=== PATIENT | male | born 1965 | race Caucasian/White ===

== ENCOUNTER → 2017-10-30 07:54 | Outpatient (REF) | payer BC, SELFPAY ==
[2017-10-30 12:57] LABS: BUN 19 mg/dL (7-18); Calcium 9.2 mg/dL (8.5-10.1); Chloride 101 mmol/L (98-107); Glucose 122 mg/dL (70-100); Potassium 4.3 mmol/L (3.5-5.1); Sodium 139 mmol/L (136-145)
[2017-10-30 13:02] LABS: Hemoglobin A1C 6.1 % (4.5-6.2)
== END ==
LOC: NCHCN 07:54
PROVIDERS: PCP Internal Medicine; Visit Provider Family Medicine
DX: E11.9 Type 2 diabetes mellitus without complications (principal); I10 Essential (primary) hypertension
CPT/HCPCS: 80048; 83036

== ENCOUNTER 2017-11-10 08:56 | Outpatient (REF) | payer BC, SELFPAY ==
[2017-11-10 13:32] LABS: COMMENT (LAB VIEW ONLY) 214.83 mg/dL; Microalb ug/mg Crea 4.9 ug/mg Cr
== END 2017-11-10 09:16 ==
LOC: NCHCN 08:56
PROVIDERS: PCP Internal Medicine; Visit Provider Family Medicine
DX: E11.9 Type 2 diabetes mellitus without complications (principal)
CPT/HCPCS: 82043; 82570

== ENCOUNTER 2018-11-23 10:29 | Outpatient (REF) | payer BC, SELFPAY ==
[2018-11-23 11:50] LABS: BUN 24 mg/dL (7-18); CREATININE 1.49 mg/dL (0.70-1.30); Calcium 9.3 mg/dL (8.5-10.1); Chloride 100 mmol/L (98-107); Estimated GFR 48.97 (mL/min/1.73m2); Glucose 143 mg/dL (70-100); Sodium 138 mmol/L (136-145)
== END 2018-11-23 10:49 ==
LOC: NCHCN 10:29
PROVIDERS: PCP Internal Medicine; Visit Provider Family Medicine
DX: I10 Essential (primary) hypertension (principal)
CPT/HCPCS: 80048

== ENCOUNTER 2019-05-25 10:43 | Outpatient (REF) | payer BC, SELFPAY ==
[2019-05-25 13:45] LABS: Magnesium 1.5 mg/dL (1.8-2.4); TSH (W/Ref FT4) 2.43 uIU/mL (0.36-3.74)
== END 2019-05-25 11:03 ==
LOC: NCHCN 10:43
PROVIDERS: PCP Internal Medicine; Visit Provider Family Medicine
DX: I48.91 Unspecified atrial fibrillation (principal)
CPT/HCPCS: 83735; 84443

== ENCOUNTER 2019-11-28 11:10 | Outpatient (REF) | payer BC, SELFPAY ==
[2019-11-28 19:41] LABS: Anion Gap 10.3 mmol/L (3-11); BUN 22 mg/dL (7-18); CO2 26.7 mmol/L (21.0-32.0); Calcium 9.4 mg/dL (8.5-10.1); Chloride 99 mmol/L (98-107); Estimated GFR 52.42 (mL/min/1.73m2); Glucose 135 mg/dL (74-106); Magnesium 1.8 mg/dL (1.8-2.4); Potassium 4.7 mmol/L (3.5-5.1); Sodium 136 mmol/L (136-145); Vitamin B12 271 pg/mL (193-986)
== END 2019-11-28 11:30 ==
LOC: NCHCN 11:10
PROVIDERS: PCP Internal Medicine; Visit Provider Family Medicine
DX: E83.42 Hypomagnesemia (principal); E11.9 Type 2 diabetes mellitus without complications; K21.9 Gastro-esophageal reflux disease without esophagitis; N28.9 Disorder of kidney and ureter, unspecified
CPT/HCPCS: 80048; 82607; 83735

== ENCOUNTER 2019-12-28 09:01 | Day surgery (SDC) | payer BC, SELFPAY ==
--- NOTE | 2019-12-28 06:49 | W.COLOREPORT ---
Date of service: 12/28/19 Time of Service: 12:49 Colonoscopy Report Date of procedure: 12/28/19 Pre-op diagnosis general: screening, hx of polyps Post-op diagnosis procedure note: other (polyps and external hemorrhoid) Procedure: colonoscopy with polypectomy Surgeon: Adeline Lal Anesthesia proc note operative: other (General/ ASA 2/Ishmael Scales, SELAM) Estimated blood loss (mL): 3 Pathology: other (ascending, descending sigmoid and rectal polyps) Complications: None Disposition: same day Indications: Mr. Paulson is a pleasant 54-year-old gentleman who is due for colonoscopy. His last colonoscopy was in 2014 and at that time he was noted to have a tubular adenoma. He has had no changes in his bowel habits. He does have some occasional rectal bleeding. He recently had a physical exam and his primary care physician noted an external skin tag versus wart versus neoplasm and wanted the patient examined. Because he is due for colonoscopy I will do the examination at the time of the colonoscopy and do biopsies as needed at that time. The patient has a past medical history of a murmur and A. fib. His last echo was 2014. Patient is asymptomatic. He has no chest pain and is able to climb stairs without shortness of breath. Colonoscopy explained to the patient as well as its complications. Prep: Miralax/Dulcolax Procedure Start Time: 12:49 Procedure End Time: 13:19 Retraction Time: >6 minutes Findings: multiple small sessile polyps External hemorrhoid Procedure Description: After informed consent was obtained the patient was taken to the procedure room and placed in a left decubitous position. Monitors were applied and a time out was done. The patients name, date of , procedure, allergies to medications and metal in their body was reviewed. The patient was then sedated. Once sedated and comfortable a rectal exam was done. External exam revealed one external hemorrhoid. Internal exam revealed a normal sphincter tone and no palpable masses. The prostate felt smooth and not enlarged. The scope was then introduced and retro-flexed. No internal hemorrhoids were identified. The scope was then advanced to the cecum without difficulty. The ileocecal valve and appendiceal orifice were identified. The prep was good. The scope was then slowly retracted over more then 6 minutes back into the rectum. Polyps were removed with cold forceps in the ascending colon x1, descending colon x1, sigmoid colon x8 and rectum x2. There were no diverticula. The scope was removed and the patient was woken up and taken back to Same day surgery in stable condition. The patient tolerated the procedure well and there were no immediate complications. Follow up: The patient should follow up in 5 years unless they develop changes in bowel habits or other new gastrointestinal complaints.
--- NOTE | 2019-12-28 06:50 | W.PM.DSUDISC ---
Discharge Plan Disposition Patient Disposition: HOME Condition: Good Discharge Details Reason For Visit: Colonoscopy Attending Provider: Adeline Lal Primary Care Provider: Cody Frederick [place] Meds and New Rx's Prescriptions: Continued magnesium oxide 400 mg magnesium capsule 400 mg PO BID RF: 0 Eliquis 5 mg tablet 5 mg PO BID RF: 0 omeprazole 20 mg capsule,delayed release(DR/EC) 20 mg PO DAILY RF: 0 chlorthalidone 25 mg tablet 25 mg PO DAILY RF: 0 spironolactone 25 mg tablet 25 mg PO DAILY RF: 0 metformin 1,000 mg tablet 1,000 mg PO BID RF: 0 atorvastatin 40 mg tablet 40 mg PO DAILY RF: 0 diltiazem HCl 180 MG capsule,extended release 24hr 180 mg PO DAILY RF: 0 doxazosin 1 mg tablet 1 mg PO HS RF: 0 Discontinued bisacodyl [Dulcolax (bisacodyl)] 5 mg tablet,delayed release (DR/EC) 5 mg PO ONCE Qty: 4 RF: 0 polyethylene glycol 3350 17 gram powder in packet 255 g PO DAILY Qty: 15 RF: 0 Discharge Instructions Additional Instructions: Findings: 12 polyps removed external hemorrhoid Follow up: depends on pathology results Please call if you develop: fevers >101.5 Nausea or Vomiting Abdominal pain that is not transient DAY SURGERY UNIT POST ENDOSCOPY INSTRUCTIONS 1. Because there will be medication in your system for the next 24 hours, you may feel a little sleepy. Your coordination will be affected. Therefore: a. Do not drive or operate dangerous equipment for 24 hours. b. Do not drink alcohol beverages for 24 hours (not even beer). c. Plan to go home and rest for the day. 2. Generally there are no restrictions on your activity after a day or so has gone by, but you may feel a bit fatigued for a few days. 3 After you arrive home you may have a light meal and return to a normal diet as you can tolerate it without feeling sick to your stomach. 4. After surgery, you may feel pain or discomfort. This should be only transient, but if it persists please contact your doctor. 5. If there are any questions regarding the findings of your procedure, please feel free to contact your doctor. 6. If you are unable to contact your doctor with a problem, contact the hospital at [phone]. 7. Continue all your regular medications unless directed otherwise. I understand the above instructions and have no questions. Signature of Patient or Responsible Adult Escort Date/Time Name of Responsible Adult Escort Signature of Nurse Date/Time Activity:: Activity as Tolerated Diet:: As Tolerated Discharge Orders Discharge Orders: Discharge Order (Routine); Ordered 12/28/19 Ordered By: Adeline Lal
[2019-12-28 09:14] VITALS: BP 139/79; PULSE 80; RESP 18; TEMP 36.6; O2SAT 95
[2019-12-28] MEDS: Lactated Ringers 1,000 ML 80 ML IV (09:39)
--- NOTE | 2019-12-28 13:00 | BOWEL_PTH ---
PATIENT: Jay Paulson LOC: [facility] U#:[id number] AGE/SX: 54/M ROOM: RE12/28/[address]: Adeline Lal MD : [id number] BED: DIS: 12/28/2019 SPEC #: [id number] RECD: 12/28/19 16:20 STATUS: ANT REQ #: [id number] NIRALI: 12/28/19 13:[address]: Adeline Lal DEPT: Surgical Specimen RECD BY: Karen Rausch ENTERED: 12/28/19 16:22 SP TYPE: Bowel OTHR DR: Cody Frederick Tissues: 1 - BIOPSY BOWEL 2 - BIOPSY BOWEL 3 - BIOPSY BOWEL 4 - BIOPSY BOWEL Procedures: GROSS AND MICRO LEVEL 4 Comments: [id number]
[2019-12-28 13:52] VITALS: BP 138/82; PULSE 67; RESP 18; TEMP 36.4; O2SAT 96
== END 2019-12-28 14:23 | disposition home or self-care (01) ==
PROVIDERS: PCP Family Medicine; Visit Provider Surgery
PROC: 0DJD8ZZ Inspection of Lower Intestinal Tract, Via Natural or Artificial Opening Endoscopic (ICD-10-PCS; CPT 45378; principal; 2019-12-28 09:30)
DX: Z12.11 Encounter for screening for malignant neoplasm of colon (principal); D12.4 Benign neoplasm of descending colon; K62.1 Rectal polyp; K63.5 Polyp of colon
CPT/HCPCS: 45380; 88305; J2001

== ENCOUNTER 2020-02-08 21:58 | Outpatient (REF) | payer BC, SELFPAY ==
[2020-02-08 20:52] LABS: Anion Gap 10.4 mmol/L (3-11); BUN 20 mg/dL (7-18); CO2 25.6 mmol/L (21.0-32.0); CREATININE 1.34 mg/dL (0.70-1.30); Chloride 101 mmol/L (98-107); Estimated GFR 55.14 (mL/min/1.73m2); Glucose 116 mg/dL (74-106); Potassium 4.3 mmol/L (3.5-5.1); Sodium 137 mmol/L (136-145)
== END 2020-02-08 22:18 ==
LOC: NCHCN 21:58
PROVIDERS: PCP Family Medicine; Visit Provider Family Medicine
DX: I10 Essential (primary) hypertension (principal)
CPT/HCPCS: 80048

== ENCOUNTER 2020-02-21 15:58 | Outpatient (REF) | payer BC, SELFPAY ==
[2020-02-21 16:33] LABS: Anion Gap 13.5 mmol/L (3-11); BUN 22 mg/dL (7-18); CO2 21.5 mmol/L (21.0-32.0); CREATININE 1.54 mg/dL (0.70-1.30); Calcium 9.3 mg/dL (8.5-10.1); Chloride 100 mmol/L (98-107); Estimated GFR 46.96 (mL/min/1.73m2); Glucose 187 mg/dL (74-106); Potassium 4.3 mmol/L (3.5-5.1); Sodium 135 mmol/L (136-145)
== END 2020-02-21 16:18 ==
LOC: NCHCN 15:58
PROVIDERS: PCP Family Medicine; Visit Provider Family Medicine
DX: I10 Essential (primary) hypertension (principal)
CPT/HCPCS: 80048

== ENCOUNTER 2021-02-06 20:54 | Outpatient (REF) | payer BC, SELFPAY ==
[2021-02-06 20:52] LABS: Anion Gap 12.7 mmol/L (3-11); BUN 29 mg/dL (7-18); CO2 24.3 mmol/L (21.0-32.0); CREATININE 1.6 mg/dL (0.70-1.30); Calcium 9.2 mg/dL (8.5-10.1); Chloride 101 mmol/L (98-107); Estimated GFR 44.78 (mL/min/1.73m2); Glucose 119 mg/dL (74-106); Potassium 4.7 mmol/L (3.5-5.1); Sodium 138 mmol/L (136-145)
== END 2021-02-06 20:55 | disposition home or self-care (01) ==
LOC: NCHCN 20:54
PROVIDERS: PCP Family Medicine; Visit Provider Family Medicine
DX: N18.31 Chronic kidney disease, stage 3a (principal)
CPT/HCPCS: 80048

== ENCOUNTER 2021-03-20 01:21 | Outpatient (CLI) | payer BC, SELFPAY ==
--- NOTE | 2021-03-20 14:00 | DI.US_ITS ---
APPROVED REPORT EXAM: Comprehensive 2D, Doppler, and color-flow Echocardiogram Patient Location: Out-Patient Medical Office Technician: Ryann Joyner RDCS (AE) Indications: Aortic stenosis, HTN, A Fib, Murmur Other Information Study Quality: Good Conclusion Left Ventricle : The left ventricle is normal size. The left ventricular systolic function is normal. The left ventricular ejection fraction is within the normal range. There is normal left ventricular wall thickness. There is normal LV segmental wall motion. The diastolic function is abnormal. LVEF is 60-65%. Right Ventricle : The right ventricle is normal size. The right ventricular systolic function is norm al. The RVSP is 28.5mmHg. Atria : The left atrium size is normal. The right atrium size is normal. Aortic Valve : Aortic valve is calcified. No aortic regurgitation is present. Moderate aortic stenosi s. Peak aortic valve gradient is 60.3mmHg. Highest mean aortic valve gradient is 34.3mmHg. Calculate d JOHNNA by the continuity equation is 1.15cm2. Great Vessels : The aortic root is normal in size. The ascending aorta is moderately dilated. IVC is normal in size and collapses >50% with inspiration. Wall motion Left Ventricle The left ventricle is normal size. The left ventricular systolic function is normal. The left ventric ular ejection fraction is within the normal range. There is normal left ventricular wall thickness. T here is normal LV segmental wall motion. The diastolic function is abnormal. There is no ventricular septal defect visualized. LVEF is 60-65%. Right Ventricle The right ventricle is normal size. The right ventricular systolic function is normal. The RVSP is 28 .5mmHg. Atria The left atrium size is normal. The right atrium size is normal. The interatrial septum is intact wit h no evidence for an atrial septal defect. Aortic Valve Aortic valve is calcified. Moderate aortic stenosis. Peak aortic valve gradient is 60.3mmHg. Highest mean aortic valve gradient is 34.3mmHg. Calculated JOHNNA by the continuity equation is 1.15cm2. No aort ic regurgitation is present. Mitral Valve Moderate mitral annular calcification. No evidence of mitral valve stenosis. Trace to mild mitral reg urgitation. Tricuspid Valve The tricuspid valve is normal in structure. There is no tricuspid valve stenosis. Trace to mild tricu spid regurgitation. Pulmonic Valve The pulmonary valve is normal in structure. There is no pulmonic valvular stenosis. Mild pulmonic reg urgitation. Great Vessels The aortic root is normal in size. The ascending aorta is moderately dilated. IVC is normal in size a nd collapses >50% with inspiration. Pericardium There is no pericardial effusion. 2D Dimensions IVSD d PLAX 1.14 cm M: 0.6-1.2 LV Vol A2C d MOD 102.1 mL LVPW d PLAX 1.16 cm M: 0.6 - 1.2 LV Vol A4C d MOD 99.9 mL LVID d PLAX 5.04 cm M: 4.2 - 5.8 LA vol/ BSA A2C s A-L 24.6 mL/m2 LVDs 3.20 cm M: 2.5 - 4.0 LA vol/ BSA A4C s A-L 27.4 mL/m2 Ao Root d 3.49 cm M: 3.1 - 3.7 LA Vol/ BSA Biplane s A-L 26.8 mL/m2 RA Area A4C 12.92 cm2 LA Area A4C s MOD 20.77 cm2 RA Vol/ BSA A4C s A-L 12.3 mL/m2 LA Area A2C s MOD 19.06 cm2 Ao Asc Diam d 4.11 cm M: 2.6 - 3.4 LV EF A4C MOD 61.7 % LV EF Teichholz 65.4 % LV EF A2C MOD 66.2 % LVEF (Willams's) 62.54 % M: 52 - 72 LV EF Biplane MOD 62.5 % LV Volume 74.30 mL M: 62 - 150 SV 63.68 mL LV Volume Index 34.23 mL/m2 M: 34 - 74 SV Index 29.27 mL/m2 LV Vol Biplane MOD 101.8 mL FS 36.00 % M-Mode TAPSE 1.78 cm (M/F) >1.7 LV Diastology MV E' medial 0.059 (>0.07 m/s) E/A Ratio 0.8 LV E/e MED 16.95 (<14) MV E Vmax 1.00 (0.4-1.3 m/s) MV E' lateral 0.071 (>0.1 m/s) MV A Vmax 1.30 (0.4-1.3 m/s) LV E/e LAT 14.05 (<14) MV E/A Ratio 0.74 MV E/E' medial 16.98 MV E/E' lateral 14.05 Aortic Valve LVOT Area 3.06 cm2 AoV Area Vmax 1.15 cm2 LVOT Vmax 1.46 m/s AoV Area/ BSA (Vmax) 0.53 cm2/m2 LVOT Mean Juan M. 1.28 m/s JOHNNA Mean Juan M. 1.42 cm2 LVOT Peak Grad 8.5 mmHg JOHNNA Mean Juan M. Index 0.65 cm2/m2 LVOT Mean Grad 6.6 mmHg LVOT VTI 0.344 m LVOT Diam s 1.95 cm AoV Vmax 3.88 m/s Velocity Ratio 0.37 AoV Mean Juan M. 2.77 m/s AoV Peak Grad 60.3 mmHg LVOT SV 105.44 mL AoV Mean Grad 34.3 mmHg AoV VTI 0.745 m AoV Area VTI 1.42 cm2 AoV Area/ BSA (VTI) 0.65 cm/m2 Mitral Valve MV DT 282 (160-240 msec) MV PHT 82 msec MV Area PHT 2.69 cm2 MV VTI 0.391 m MV Area VTI 2.70 (4.0-6.0 cm2) Pulmonary Valve PV Vmax 1.27 (0.5-1.5 m/s) RVOT Peak Gr. 4.45 mmHg PV Peak Grad 6.4 mmHg RVOT Mean Gr. 2.20 mmHg PV Mean Grad 3.7 mmHg RVOT VTI 0.197 m PV VTI 0.257 m RVOT Vmax 1.05 m/s Tricuspid Valve TR Peak Grad 25.4 mmHg TR Vmax 2.52 m/s RA Pressure 3.00 mmHg RVSP (TR) 28.5 mmHg
== END 2021-03-20 01:41 ==
PROVIDERS: PCP Family Medicine; Visit Provider Family Medicine
DX: I35.0 Nonrheumatic aortic (valve) stenosis (principal); I10 Essential (primary) hypertension; I48.91 Unspecified atrial fibrillation; R01.1 Cardiac murmur, unspecified; I77.810 Thoracic aortic ectasia
CPT/HCPCS: 93306

== ENCOUNTER 2021-04-03 15:05 | Outpatient (REF) | payer BC, SELFPAY ==
[2021-04-03 15:19] LABS: BUN 24 mg/dL (7-18); CREATININE 1.4 mg/dL (0.70-1.30); Calcium 9.3 mg/dL (8.5-10.1); Chloride 101 mmol/L (98-107); Estimated GFR 52.05 (mL/min/1.73m2); Glucose 105 mg/dL (74-106); Potassium 4.5 mmol/L (3.5-5.1); Sodium 137 mmol/L (136-145)
== END 2021-04-03 15:06 | disposition home or self-care (01) ==
LOC: NCHCN 15:05
PROVIDERS: PCP Family Medicine; Visit Provider Family Medicine
DX: I10 Essential (primary) hypertension (principal)
CPT/HCPCS: 80048

== ENCOUNTER 2021-07-16 17:38 | Outpatient (REF) | payer BC, SELFPAY ==
[2021-07-16 19:48] LABS: HCT 28.1 % (40.0-50.0); MCH 19.3 pg (27.0-33.0); MCHC 28.5 % (32.0-36.0); MCV 68 fL (80-95); MPV 9.9 fL (8.0-11.0); Platelet Count 418 10^3/uL (130-400); RBC 4.15 10^6/uL (4.36-5.78); RDW 17.1 % (11.8-14.1); RDW-SD 40.9 fL; WBC 8.13 10^3/uL (4.4-10.8)
[2021-07-16 20:08] LABS: Anion Gap 11.9 mmol/L (3-11); BUN 30 mg/dL (7-18); CO2 25.1 mmol/L (21.0-32.0); CREATININE 1.5 mg/dL (0.70-1.30); Calcium 8.5 mg/dL (8.5-10.1); Chloride 99 mmol/L (98-107); Estimated GFR 48.07 (mL/min/1.73m2); Glucose 122 mg/dL (74-106); Potassium 4.1 mmol/L (3.5-5.1); Sodium 136 mmol/L (136-145)
== END 2021-07-16 17:39 | disposition home or self-care (01) ==
LOC: NCHCN 17:38
PROVIDERS: PCP Family Medicine; Visit Provider Family Medicine
DX: I10 Essential (primary) hypertension (principal); R42 Dizziness and giddiness
CPT/HCPCS: 80048; 85027

== ENCOUNTER 2021-08-12 07:28 | Day surgery (SDC) | payer BC, SELFPAY ==
--- NOTE | 2021-08-12 06:18 | W.ANESPRE ---
General Info Date of Service Date Performed: 08/12/21 Height: 5 ft 9 in Weight: 108.862 kg Body Mass Index (BMI): 35.4 Surgical Procedure: Operation Date: 08/12/21 09:05 Proposed Procedure Side Surgeon p Colonoscopy w/Hemorrhoid Banding Adeline Lal MD Meds Allergies and Home Medications Allergies Allergy/AdvReac Type Severity Reaction Status Date / Time No Known Drug Allergies Allergy Unverified 08/12/21 07:59 Home Medication Medication Instructions Recorded apixaban 5 mg tablet (Eliquis) 5 mg PO BID 12/06/19 atorvastatin 40 mg tablet 40 mg PO DAILY 12/06/19 chlorthalidone 25 mg tablet 25 mg PO DAILY 12/06/19 magnesium oxide 400 mg PO BID 12/06/19 metformin 1,000 mg tablet 1,000 mg PO BID 12/06/19 omeprazole 20 mg capsule,delayed 20 mg PO DAILY 12/06/19 release spironolactone 25 mg tablet 25 mg PO DAILY 12/06/19 doxazosin 1 mg tablet 1 mg PO HS 12/26/19 dapagliflozin 5 mg tablet (Farxiga) 5 mg PO DAILY 07/23/21 diltiazem HCl 180 mg 300 mg PO DAILY 07/23/21 capsule,extended release 24 hr ferrous sulfate 325 mg (65 mg 325 mg PO DAILY 07/23/21 iron) tablet losartan 25 mg tablet 25 mg PO DAILY 07/23/21 bisacodyl 5 mg tablet,delayed 5 mg PO ONCE #4 tabs 07/26/21 release (Dulcolax (bisacodyl)) polyethylene glycol 3350 17 17 g PO ONCE #238 grams 07/26/21 gram/dose oral powder Current Visit Medications: Current Medications Generic Name Dose Route Start Last Admin Trade Name Freq PRN Reason Stop Dose Admin Ringer's Solution 1,000 mls @ 80 mls/hr 08/12/21 06:00 IV 09/05/21 23:59 INFUSION ANA ROSA IV Miscellaneous Supplies 1 each 08/12/21 06:00 Iv Access IV 09/05/21 23:59 DIRECTED ANA ROSA Sodium Chloride 0 ml 08/12/21 06:00 Normal Saline Flush 10 Ml Syr IV 09/05/21 23:59 PRN PRN Sodium Chloride 0 ml 08/12/21 06:00 Normal Saline 10 Ml Vial IJ 09/05/21 23:59 DIRECTED PRN Sterile Water 0 ml 08/12/21 06:00 Water,Injection,Sterile 10 Ml Vial IJ 09/05/21 23:59 DIRECTED PRN PFSH Active Problems Active Problems: Problem Status Onset Code Macrocytic anemia D53.9 Inflammatory polyps GERD (gastroesophageal reflux disease) K21.9 Diabetes type 2, controlled E11.9 Aortic stenosis I35.0 Hypomagnesemia E83.42 Disease of anus K62.9 Medical History Medical History A-fib F/U Dr. Frederick PCP Blurred vision BMI 34.0-34.9,adult Hx of pilonidal cyst Hyperlipidemia Renal insufficiency Pt. denies this Resistant hypertension Tubular adenoma of colon Surgical History Surgical History S/P colonoscopy 2014- Tubular adenoma Tobacco Smoking/Tobacco Use Status: Former Tobacco Use Alcohol Alcohol Intake: former Substance Use Substance use: Never Substance use type: does not use Vital Signs and Lab Results Vital Signs Most Recent Vital Signs in EMR: Temp Pulse Resp BP Pulse Ox 36.5 C 71 16 124/67 99 08/12/21 08:09 08/12/21 08:09 08/12/21 08:09 08/12/21 08:09 08/12/21 08:09 Lab Results Blood Type / Crossmatch: No Data to Display Complete Blood Count: White Blood Count 8.13 10^3/uL (4.4-10.8) 07/16/21 14:45 Red Blood Count 4.15 10^6/uL (4.36-5.78) L 07/16/21 14:45 Hemoglobin 8.0 g/dL (13.5-17.5) L 07/16/21 14:45 Hematocrit 28.1 % (40.0-50.0) L 07/16/21 14:45 Platelet Count 418 10^3/uL (130-400) H 07/16/21 14:45 Complete Metabolic Panel: Sodium Level 136 mmol/L (136-145) 07/16/21 14:45 Potassium Level 4.1 mmol/L (3.5-5.1) 07/16/21 14:45 Chloride Level 99 mmol/L (98-107) 07/16/21 14:45 Carbon Dioxide Level 25.1 mmol/L (21.0-32.0) 07/16/21 14:45 Blood Urea Nitrogen 30 mg/dL (7-18) H 07/16/21 14:45 Creatinine 1.5 mg/dL (0.70-1.30) H 07/16/21 14:45 Estimated GFR/1.73 m2 48.07 (mL/min/1.73m2) 07/16/21 14:45 Calcium Level 8.5 mg/dL (8.5-10.1) 07/16/21 14:45 Glucose Level 122 mg/dL (74-106) H 07/16/21 14:45 Liver Function Panel: No Data to Display Coagulation Panel: No Data to Display Cardiac Panel: No Data to Display Arterial Blood Gas: No Data to Display Venous Blood Gas: No Data to Display Pancreas Panel: No Data to Display Thyroid Panel: No Data to Display Infectious Disease: No Data to Display Blood Cultures: No Data to Display Toxicology Panel: No Data to Display Imaging and Studies Imaging and Studies Study information below may be from another EMR and interpreted by another provider. Please see original notes in EMR for more complete details. Echocardiogram Summary: 03/20/21: LVEF 60-65%, RV fxn wnl. moderate , peak gradient 60 mmhg, mean 34.4 mmhg, JOHNNA 1.15 cm2. Anesthesia Assessment and Plan Anesthesia History Personal History: No History of Anesthesia Complications Family History: No Family History of Anesthesia Complications Exercise Tolerance Exercise Tolerance: Metabolic Equivalents>4 Cardiac & Pulmonary Exam Cardiac Exam: Normal S1/S2 Heart Sounds Pulmonary Exam: Clear Bilateral Breath Sounds Implantable Cardiac Device Does patient have a Pacemaker or an ICD?: No Airway Exam Known Difficult Airway: No Mallampati Class: 2 Mouth Opening: Normal (> 3cm) Thyromental Distance: Greater than 3 cm Neck Range of Motion: Full ROM Neck Circumference: Thick Teeth Condition: Normal Dentition ASA Classification ASA Score: ASA 3 Emergency Case?: No NPO Status NPO Status: NPO Clears >2 hours, Solids >8 hours Anesthesia Plan Resuscitation Status: Full Code Anesthesia Technique: General Anesthesia Airway Planned: Natural Airway Monitors Used: Standard Monitors Preoperative Comments:: 56 yo male with anemia, history of polyps, blood in stool here for a colonoscopy. Sig PMHx: moderate , CKD, anemia, DM2, GERD, afib, former smoker, former EtOH.. Previous Anes: colo with propofol - no issues.
--- NOTE | 2021-08-12 07:00 | COLE_ITS ---
Colonoscopy Report Date of procedure: 08/12/21 Pre-op diagnosis general: anemia Post-op diagnosis procedure note: other (internal hemorrhoids and polyps) Procedure: Colonoscopy with polypectomy Surgeon: Adeline Lal Anesthesia Type: General:No Airway Estimated blood loss (mL): 3 Pathology: other (cecal polyps, rectal polyps) Complications: None Disposition: same day Indications: Mr. Paulson is a pleasant 56-year-old gentleman who was noted to be anemic by his primary care physician.? He has had some blood in the stool and in the water.? The blood is bright red.? He has had lack of energy but no shortness of breath or chest pain.? He has a known murmur and had an echo in March of this year.? He does have moderate aortic stenosis.? Again he does not have shortness of breath.? We discussed the colonoscopy in detail with a hemorrhoid banding if needed.? Patient wishes to proceed with this plan.? I will have him stop Eliquis 2 days prior to the procedure. Risks, benefits and complications have been reviewed. Complications include but are not limited to bleeding, pain, perforation, missed small lesion/polyp, sore throat, aspiration and adverse reaction to the medications. Questions were entertained and answered to their satisfaction and they wished to proceed. No guarantees were given or implied. Colonoscopy under sedation Prep: Miralax/Dulcolax Procedure Start Time: :13 Procedure End Time: :40 Retraction Time: 16 minutes Findings: Grade 2 internal hemorrhoids small polyps Procedure Description: After informed consent was obtained the patient was taken to the procedure room and placed in a left decubitous position. Monitors were applied and a time out was done. The patients name, date of , procedure, allergies to medications and metal in their body was reviewed. The patient was then sedated. Once sedated and comfortable a rectal exam was done. External exam was normal. Internal exam revealed a normal sphincter tone and no palpable masses. The prostate felt smooth. The scope was then introduced and retro-flexed. Grade 1 and 2 internal hemorrhoids were identified. No polyps or masses were identified on retro- flexion. The scope was then advanced to the cecum without difficulty. The ileocecal vlave and appendiceal orifice were identified. The prep was good. The scope was then slowly retracted over 16 minutes back into the rectum. Polyps were removed with cold forceps in the cecum x1 and the rectum x6. There was no diverticulosis noted. The scope was removed. A disposable, lighted anoscope was intruduced and the 2 Grade 2 internal hemorrhoids were banded without difficulty. The patient was woken up and taken back to Same day surgery in stable condition. The patient tolerated the procedure well and there were no immediate complications.
--- NOTE | 2021-08-12 07:01 | W.PM.DSUDISC ---
Discharge Plan Disposition Patient Disposition: HOME Condition: Good Discharge Details Reason For Visit: Colonoscopy Attending Provider: Adeline Lal Primary Care Provider: Cody Frederick [place] Meds and New Rx's Prescriptions: Continued magnesium oxide 400 mg magnesium capsule 400 mg PO BID Eliquis 5 mg tablet 5 mg PO BID omeprazole 20 mg capsule,delayed release(DR/EC) 20 mg PO DAILY chlorthalidone 25 mg tablet 25 mg PO DAILY Label Comments: pt. states MD had him stop about a week spironolactone 25 mg tablet 25 mg PO DAILY metformin 1,000 mg tablet 1,000 mg PO BID atorvastatin 40 mg tablet 40 mg PO DAILY ferrous sulfate 325 mg (65 mg iron) tablet 325 mg PO DAILY Farxiga 5 mg tablet 5 mg PO DAILY losartan 25 mg tablet 25 mg PO DAILY diltiazem HCl 180 mg capsule,extended release 24hr 300 mg PO DAILY doxazosin 1 mg tablet 1 mg PO HS Label Comments: TK 1 T PO D AT BEDTIME. INCREASE TO 2 MG AFTER 1 WK Discontinued bisacodyl [Dulcolax (bisacodyl)] 5 mg tablet,delayed release (DR/EC) 5 mg PO ONCE Qty: 4 0RF Rx Instructions: Take according to provider's instructions for colonoscopy prep. polyethylene glycol 3350 17 gram/dose powder 17 g PO ONCE Qty: 238 0RF Rx Instructions: To be taken as directed by prescriber's office for colonoscopy prep. Discharge Instructions Instructions: Hemorrhoids (DC), Colorectal Polyps (DC) Additional Instructions: Findings: several small polyps internal hemorrhoids Follow up: 5 years Please call if you develop: fevers >101.5 Nausea or Vomiting Abdominal pain that is not transient Rectal bleeding that is more then a tbsp A hard abdomen and inability to pass gas DAY SURGERY UNIT POST ENDOSCOPY INSTRUCTIONS Instructions for everyone who is given Anesthesia: For your safety, please do the following for the next 24 Hours: a. Do not drive or operate dangerous equipment b. Do not drink alcohol beverages or use any recreational drugs for the first 24 hours or while taking pain medications. The medications in your body may have a reaction that can be dangerous. c. Do not make any important decisions or sign any important papers 1. Generally there are no restrictions on your activity after a day or so has gone by, but you may feel a bit fatigued for a few days. 2. After you arrive home you may have a light meal and return to a normal diet as you can tolerate it without feeling sick to your stomach. 3. After surgery, you may feel pain or discomfort. This should be only transient, but if it persists please contact your doctor. 4. If there are any questions regarding the findings of your procedure, please feel free to contact your doctor. 6. If you are unable to contact your doctor with a problem, contact the hospital at [phone]. 7. Continue all your regular medications unless directed otherwise. I understand the above instructions and have no questions. Signature of Patient or Responsible Adult Escort Date/Time Name of Responsible Adult Escort Signature of Nurse Date/Time Activity:: Activity as Tolerated Diet:: high fiber diet Discharge Orders Discharge Orders: Discharge Order (Routine); Ordered 08/12/21 Ordered By: Adeline Lal
[2021-08-12 08:09] VITALS: BP 124/67; PULSE 71; RESP 16; TEMP 36.5; O2SAT 99
[2021-08-12] MEDS: Lactated Ringers 1,000 ML 80 ML IV (08:20)
[2021-08-12 08:39] VITALS: BMI 35.4
--- NOTE | 2021-08-12 09:25 | BOWEL_PTH ---
PATIENT: Jay Paulson LOC: [facility] U#:[id number] AGE/SX: 56/M ROOM: RE08/12/[address]: Adeline Lal MD : 1965 BED: DIS: 08/12/2021 SPEC #: [id number] RECD: 08/12/21 12:43 STATUS: ANT REQ #: [id number] NIRALI: 08/12/21 09:[address]: Adeline Lal DEPT: Surgical Specimen RECD BY: Karen Rausch ENTERED: 08/12/21 12:44 SP TYPE: Bowel OTHR DR: Cody Frederick Tissues: 1 - BIOPSY BOWEL 2 - BIOPSY BOWEL Procedures: GROSS AND MICRO LEVEL 4 Comments: [id number]
[2021-08-12 09:47] VITALS: BP 93/60; PULSE 71; RESP 16; TEMP 36.1; O2SAT 93
--- NOTE | 2021-08-12 09:55 | W.ANESPOSTOP ---
Postoperative Evaluation Date, Time and Location Date Performed: 08/12/21 Time Performed: 09:55 Patient Location: Day Surgery Unit Vital Signs Most Recent Imported Vital Signs: Most Recent Vital Signs Temp Pulse Resp BP Pulse Ox 36.1 C L 71 16 93/60 L 93 08/12/21 09:47 08/12/21 09:47 08/12/21 09:47 08/12/21 09:47 08/12/21 09:47 Pain Score Most Recent Pain Score: Most Recent Pain Score Pain Level 0 08/12/21 09:47 Assessment Mental Status: Awake (Alert & Oriented to Patient Baseline) Airway and Respiratory Function: Patent airway with normal (patient baseline) respiratory exam Cardiovascular Function: Hemodynamically Stable Hydration Status: Adequately Hydrated Nausea & Vomiting: No Nausea or Vomiting Pain: Pt. Denies Any Pain Peripheral Nerve Block: Patient did not receive a nerve block
[2021-08-12 10:12] VITALS: BP 94/52; PULSE 62; RESP 16; TEMP 36.5; O2SAT 95
== END 2021-08-12 07:29 | disposition home or self-care (01) ==
PROVIDERS: PCP Family Medicine; Visit Provider Surgery
PROC: 0DJD8ZZ Inspection of Lower Intestinal Tract, Via Natural or Artificial Opening Endoscopic (ICD-10-PCS; CPT 45378; principal; 2021-08-12 09:00)
DX: D64.9 Anemia, unspecified (principal); K63.5 Polyp of colon; K64.0 First degree hemorrhoids; K62.1 Rectal polyp; K64.1 Second degree hemorrhoids; K62.5 Hemorrhage of anus and rectum; I35.0 Nonrheumatic aortic (valve) stenosis; Z79.01 Long term (current) use of anticoagulants
CPT/HCPCS: 45380; 46221; 88305

== ENCOUNTER 2021-08-16 16:21 | Outpatient (REF) | payer BC, SELFPAY ==
[2021-08-16 19:23] LABS: HCT 27.1 % (40.0-50.0); HGB 7.8 g/dL (13.5-17.5); MCH 19.1 pg (27.0-33.0); MCHC 28.8 % (32.0-36.0); Platelet Count 428 10^3/uL (130-400); RBC 4.08 10^6/uL (4.36-5.78); RDW-SD 44.6 fL; WBC 7.75 10^3/uL (4.4-10.8)
[2021-08-16 19:54] LABS: MCV 66 fL (80-95)
[2021-08-16 20:19] LABS: Iron 14 ug/dL (65-175); Total Iron Binding Capacity 411 ug/dL (250-450); Transferrin Sat 3 % (20-55)
[2021-08-16 20:41] LABS: Ferritin 5 ng/mL (26-388); Vitamin B12 199 pg/mL (193-986)
== END 2021-08-16 16:22 | disposition home or self-care (01) ==
LOC: NCHCN 16:21
PROVIDERS: PCP Family Medicine; Visit Provider Family Medicine
DX: D50.9 Iron deficiency anemia, unspecified (principal)
CPT/HCPCS: 85027; 82607; 82728; 83540; 83550

== ENCOUNTER 2021-09-20 01:10 | Outpatient (CLI) | payer BC, SELFPAY ==
--- OUTSIDE RECORDS SUMMARY | 2021-09-20 01:13 | XMS_ITS | Encounter Summary ---
:1965 Author Organization [facility] Address [address] [place] [address] Care Team Providers Name Role Phone Unavailable Primary Care Provider Unavailable Encounter Details Date Type Department Care Team Description 08/01/2004 Results Only [facility] - Nicole Lee MD Maple conversion [address] [facility] [address] [place] [address] [place], [place] [id number] [phone] Social History Tobacco Use Types Packs/Day Years Used Date Never Assessed Sex Assigned at Date Recorded Not on file documented as of this encounter Plan of Treatment Not on filedocumented as of this encounter Procedures Procedure Name Priority Date/Time Associated Diagnosis Comme [facility] SURGICAL PATHOLOGY Routine 08/01/2004 0:00 EDT Re sults for this procedure are i n the results section. documented in this encounter Results SURGICAL PATHOLOGY (08/01/2004 0:00 EDT) Pathology Report: SURGICAL PATHOLOGY REPORT [facility]GAN [facility] Reports generated via electronic interface contain erik ginal data; LAB however they are lacking the format of the original re port. Caution should be taken when reading/interpreting unfo rmatted reports. Name: ? JAY APARICIO ? Accession #: ? [id number] ? : ? 1965 (Age: 39) ??M ? Collect Date: ? 08/01/2004 ? Location: ? [facility] ? Receive Date: ? 005 ? Provider: NICOLE LEE MD Copy to: TWIN DENNIS MD ? Final Pathologic Diagnosis: A. ?Colon, splenic flexure, biopsies: 1. ?Colonic mucosa with no significant pa thologic features. B. ?Colon, descending, biopsy: 1. ?Focal acute colitis. ??See comment. C. ?Colon, sigmoid, biopsies: 1. ?Colonic mucosa with no significant pa thologic features. D. ?Rectum, #1, biopsies: 1. ?Inflamed hyperplastic polyp. E. ?Rectum, #2, biopsies: 1. ?Focal acute colitis. ??See comment. Comment: ? Sections of descending colon and rectum show fo alexis neutrophilic crypt inflammation without evidenc e of chronicity. ??In the presence of symptoms, such findings could be compatible with acute colitis. ??Differential considerations include acute self-limited colitis and a cute colitides of infectious etiology. Due to the focal nature of t he inflammation, bowel preparatory effect is also a consideration. ??Representat lolita sections have been reviewed at intradepartmental consultation conference. ??(Dr. Esparza)/[facility] Document reviewed and electronically signed by: ROM ESPARZA MD Report ??Date: 08/07/2004 16:50 By the signature above, the attending physician certif ies that he/she has personally conducted a gross and/or microscopic examin ation of the described specimens and rendered or confirmed the above diagnosi s. Specimen(s) Received: A. ?Bx splenic flexure (#1) B. ?Bx descending colon (#2) C. ?Bx sigmoid colon (#3) D. ?Bx rectum #1 (#4) E. ?Rectal bx' s #2 (#5) Clinical History: ? Rectal bleeding; R/O colitis; 2 photos attached Gross Description: ? Received in [employer]' [employer] fixative labeled Aparicio and #1 ??bx splenic flexure are two fragments of soft ti ssue which measure 0.4 x 0.2 x 0.2 cm and 0.3 x 0.3 x 0.2 cm. ??These fragments are submitted intact as (A ). Received in [employer] fixa tive labeled Aparicio and #2 ??descending colon bx is a single 0.3 x 0.2 x 0.2 cm fragment of soft tissue. ??This specimen is submitted intact as (B). Received in [employer] fixative labeled Apar[place] and si gmoid colon bx #3 are three fragments of soft tissue which range in si ze from 0.4 x 0.2 x 0.2 cm to 0.3 x 0.2 x 0.2 cm. ??These specimens are [facility] as (C). Received in [place] fixative labeled Aparicio and #4 ??rectum bx #1 are two fragments of soft tissue which measure 0.3 x 0.2 x 0.2 cm and 0.2 x 0.2 x 0.2 cm. ??These fragments are submitted intact as (D). Received in [employer] s fixative labeled Aparicio a nd #5 ??rectal bx' s #2 are four fragments of soft tissu e which range in size from 0.5 x 0.2 x 0.2 cm to 0.3 x 0.2 x 0.2 cm. ??These fragments of tissue are submit lizz intact as (E1) and (E2). ??(Dr. Esau Bravo-MINERVA)/[facility] End of Report Specimen Performing Organization Address City/State/ZIP Code Phon e Number [facility] [address] [place] [address] SERVICES [facility] [address] [place] [id number] documented in this encounter Visit Diagnoses Not on filedocumented in this encounter
--- OUTSIDE RECORDS SUMMARY | 2021-09-20 01:13 | XMS_ITS | Encounter Summary ---
:1965 Author Organization [facility] Address [address] [place] [address] Care Team Providers Name Role Phone Cody Frederick MD Primary Care Provider Encounter Details Date Type Department Care Team Description 12/28/2019 Lab Requisition [facility] Stephanie Lal for Pathology & MD Bri screening for Laboratory Medicine [address] [facility] [address] malignant neoplasm - [place], [place] of colon [address] [facility] [address] [place], [place] [address] Social History Tobacco Use Types Packs/Day Years Used Date Never Assessed Sex Assigned at Date Recorded Not on file documented as of this encounter Plan of Treatment Not on filedocumented as of this encounter Procedures Procedure Name Priority Date/Time Associated Diagnosis Comme nts SURGICAL PATHOLOGY Today 12/28/2019 13:00 Encounter for Resu lts for this EDT screening for procedure are in malignant neoplasm the resul ts of colon section. documented in this encounter Results SURGICAL PATHOLOGY (12/28/2019 13:00 EDT) Final Diagnosis A. COLON, ASCENDING, POLYP, BIOPSY: [facility] - Benign inflammatory polyp. [facility]ENTER LAB[facility]ORY B. COLON, DESCENDING, POLYP, BIOPSY: SERV ICES - Fragments of tubular adenoma. C. COLON, SIGMOID, POLYPS, BIOPSY: - Fragments of hyperplastic polyp(s). D. RECTUM, POLYPS, BIOPSY: - Fragments of hyperplastic polyp(s). Attestation By the signature [facility] Electronica lly below, the attending CENTER signed by Fadi physician certifies LABORATORY MD Dionne on that they have 1) SERVICES 12/29/2019 at 1745 personally conducted a gross and/or microscopic examination of the described specimen(s), and/or personally interpreted the results of laboratory testing of the described specimen(s), and 2) personally rendered or confirmed the above diagnosis. Clinical History HX polyps; Screening [facility] SERVICES Gross Description A. [facility] Received in formalin donald d with proper patient identification (initials O, F) and ascending colon polyp is a single fragment of doty soft tissue (0.2 x 0.2 x 0.2 cm). The specimen is entirely submitted in A1. [facility] B. SERVICES Received in formalin donald d with proper patient identification (initials O, F) and descending colon polyp are 3 fragments of doty-brown soft tissue (ranging from 0.2 cm to 0.3 cm in greatest dimension). The specimen is entirely submitted in B1. C. Received in formalin donald d with proper patient identification (initials O, F) and sigmoid colon polyps x8 are 8 fragments of doty soft tissue (ranging from 0.2 cm to 0.3 cm in greatest dimension). The specimen is entirely submitted in C1-C3. D. Received in formalin donald d with proper patient identification (initials O, F) and rectal polyps x2 are 2 fragments of doty soft tissue (each averaging 0.2 x 0.2 x 0.2 cm). The specimen is entirely submitted in D1. WOLFGANG CAMARILLO(ASCP) 12/29/2019 8:22 Performing Lab [facility] SERVICES Scanned Images [facility] SERVICES Specimen Tissue - Specimen from rectum (specimen) Tissue specimen (specimen) - Descending colon structure (body structure) Tissue specimen (specimen) - Entire sigm oid colon (body structure) Tissue specimen (specimen) - Specimen fr om rectum (specimen) Performing Organization Address City/State/ZIP Code Phon e Number [facility] [address] [place] [address] SERVICES documented in this encounter Visit Diagnoses Diagnosis Encounter for screening for malignant ne oplasm of colon Special screening for malignant neoplasm s, colon documented in this encounter Care Teams Cosmetology Teacher Relationship Specialty Start Date End Date Cody Frederick MD PCP - General 12/28/19 [address] [place], [place] [address] documented as of this encounter
--- OUTSIDE RECORDS SUMMARY | 2021-09-20 01:13 | XMS_ITS | Encounter Summary ---
:1965 Author Organization [facility] Address [address] [place] [address] Care Team Providers Name Role Phone Unknown, Provider Primary Care Provider Encounter Details Date Type Department Care Team Description 02/26/2015 Hospital Encounter [facility] [place] Unknown, Provider, Zachariah Tovar MD [address] [facility] [phone] [place] [address] (Work) [phone] Social History Tobacco Use Types Packs/Day Years Used Date Never Assessed Sex Assigned at Date Recorded Not on file documented as of this encounter Discharge Disposition Disposition Code Departure Means Destination Home or Self [facility] documented in this encounter Plan of Treatment Not on filedocumented as of this encounter Visit Diagnoses Not on filedocumented in this encounter Care Teams Upward Bound Director Relationship Specialty Start Date End Date Unknown, Provider, PCP - General 01/13/15 12/27/19 documented as of this encounter
--- OUTSIDE RECORDS SUMMARY | 2021-09-20 01:13 | XMS_ITS | Encounter Summary ---
:1965 Author Organization [facility] Address [address] [place] [address] Care Team Providers Name Role Phone Cody Frederick MD Primary Care Provider Encounter Details Date Type Department Care Team Description 08/12/2021 Lab Requisition [facility] Stephanie Lal for other Pathology & MD Bri general examination Laboratory Medicine [address] [place], [place] [address] [facility] [address] [place], [place] [address] Social History Tobacco Use Types Packs/Day Years Used Date Never Assessed Sex Assigned at Date Recorded Not on file documented as of this encounter Plan of Treatment Not on filedocumented as of this encounter Procedures Procedure Name Priority Date/Time Associated Diagnosis Comme nts SURGICAL PATHOLOGY Today 08/12/2021 9:25 EDT Encounter for o ther Results for this general examination procedur e are in the results section. documented in this encounter Results SURGICAL PATHOLOGY (08/12/2021 9:25 EDT) Note to Patient The following [facility] pathology results CENTER have been interpreted LABORATORY by your pathologist SERVICES and may be available to you before your health provider has had the opportunity to review them. Please allow time for your provider to receive these results and explore management options, if applicable. Final Diagnosis A. COLON, CECUM, POLYP, BIOPSY: [facility] - Tubular adenoma. CENTER LABORATORY B. RECTUM, POLYPS X6, BIOPSY: SERVICES - Hyperplastic polyps. Attestation By the signature [facility] Electronica lly below, the attending CENTER signed by Abu Goyo, physician certifies LABORATORY Ashutosh Bowles MD on that they have 1) SERVICES 08/13/2021 a t 1648 personally conducted a gross and/or microscopic examination of the described specimen(s), and/or personally interpreted the results of laboratory testing of the described specimen(s), and 2) personally rendered or confirmed the above diagnosis. Clinical History Anemia [facility] SERVICES Gross Description A. [facility] Received in formalin donald d with proper patient identification (initials O, F) and 1. Cecum polyp is a doty tissue (0.5 x 0.3 x 0.1 cm). Entirely submitted in A1. [facility]ENTER [facility] B. SERVICES Received in formalin donald d with proper patient identification (initials O, F) and 2. Rectal polyp x6 are 6 doty-brown tissues (0.3 x 0.3 x 0.1 cm to 0.7 x 0.3 x 0.2 cm). Entirely submitted in B1 and B2. WOLFGANG TOBIAS(ASCP) 08/13/2021 7:42 Performing Lab [facility] SERVICES Scanned Images [facility] SERVICES Specimen Tissue - Specimen from rectum (specimen) Tissue specimen (specimen) - Specimen fr om rectum (specimen) Performing Organization Address City/State/ZIP Code Phon e Number [facility] [address] [place] [address] SERVICES documented in this encounter Visit Diagnoses Diagnosis Encounter for other general examination documented in this encounter Care Teams Prototype Engineer Manager Relationship Specialty Start Date End Date Cody Frederick MD PCP - General 12/28/19 [address] [place], [place] [address] documented as of this encounter
[2021-09-20 12:02] LABS: Source Nasal/Nares
[2021-09-20 16:04] LABS: COVID-19 PCR Negative (Negative)
== END 2021-09-20 01:11 | disposition home or self-care (01) ==
LOC: LBO 01:11
PROVIDERS: PCP Family Medicine; Visit Provider Surgery
DX: Z20.822 Contact with and (suspected) exposure to COVID-19 (principal); Z01.818 Encounter for other preprocedural examination
CPT/HCPCS: 87635

== ENCOUNTER 2021-09-23 09:24 | Day surgery (SDC) | payer BC, SELFPAY ==
--- NOTE | 2021-09-23 06:22 | W.PM.ENDDOP ---
Date of service: 09/23/21 Time of Service: 12:09 Endoscopy Report DATE OF PROCEDURE: 09/23/21 PRE-OP DIAGNOSIS: Anemia POST-OP DIAGNOSIS: same (mild gastritis) PROCEDURE: EGD with biopsies SURGEON: Adeline Lal ANESTHESIA TYPE: General:No Airway ESTIMATED BLOOD LOSS: 2 PATHOLOGY: other (duodenal bx, gastric bx) COMPLICATIONS: None DISPOSITION: same day INDICATIONS: 56-year-old male presents for further evaluation of macrocytic anemia following a colonoscopy from 08/12 which was only remarkable for polyps.? Patient wishes to proceed with EGD for further evaluation given his continued anemia and positive FIT tests. -Discussed Upper endoscopy procedure and the need to be NPO after midnight the night prior. Discussed possible complications of the procedure to include bleeding, pain, perforation, missed small lesion/polyp/ulcers, sore throat, aspiration and adverse reaction to the medications or sedation. Questions were answered to patient?s satisfaction. No guarantees were implied or given. FINDINGS: mild gastritis and benign fundic polyps PROCEDURE DESCRIPTION: After informed consent was obtained the patient was take to the procedure room and placed in a supine position. Monitors were applied and a time out was done. The patients name, date of , procedure type, allergies to medications and metal in their body was reviewed. A bite block was placed and the patient was sedated. Once sedated and comfortable the gastroscope was advanced through the oropharynx which was grossly normal into the esophagus. The proximal and mid-esophagus were normal. In the distal esophagus there was no inflammation noted. The scope was advanced into the stomach and through the pylorus into the 3rd portion of the duodenum. The duodenum was noted to be normal. Biopsies were done. The scope was retracted back into the stomach and biopsies were done to rule out H. pylori. There were no ulcers. There was mild inflammation of the antrum and body. There were also benign fundic gland polyps. The scope was retroflexed. The cardia and fundus were noted to be normal. There was no hiatal hernia noted. The scope was retracted back into the esophagus and biopsies were done of the GE junction to rule out Wright's. The Z line was regular. The GE junction was at 48 cm. The scope was removed and the patient was woken up and taken back to [facility] in stable condition.
--- NOTE | 2021-09-23 06:23 | W.PM.DSUDISC ---
Discharge Plan Disposition Patient Disposition: HOME Condition: Good Discharge Details Reason For Visit: egd Attending Provider: Adeline Lal Primary Care Provider: Cody Frederick Home Meds and New Rx's Prescriptions: Continued magnesium oxide 400 mg magnesium capsule 400 mg PO BID Eliquis 5 mg tablet 5 mg PO BID omeprazole 20 mg capsule,delayed release(DR/EC) 20 mg PO DAILY spironolactone 25 mg tablet 25 mg PO DAILY metformin 1,000 mg tablet 1,000 mg PO BID atorvastatin 40 mg tablet 40 mg PO DAILY ferrous sulfate 325 mg (65 mg iron) tablet 325 mg PO DAILY Farxiga 5 mg tablet 5 mg PO DAILY losartan 25 mg tablet 25 mg PO DAILY diltiazem HCl 180 mg capsule,extended release 24hr 300 mg PO DAILY doxazosin 1 mg tablet 1 mg PO HS Label Comments: TK 1 T PO D AT BEDTIME. INCREASE TO 2 MG AFTER 1 WK Discharge Instructions Additional Instructions: Findings: mild inflammation in the stomach Follow up: with PCP to discuss possible capsule endoscopy Please call if you develop: fevers >101.5 Nausea or Vomiting Abdominal pain that is not transient Rectal bleeding that is more then a tbsp A hard abdomen and inability to pass gas DAY SURGERY UNIT POST ENDOSCOPY INSTRUCTIONS Instructions for everyone who is given Anesthesia: For your safety, please do the following for the next 24 Hours: a. Do not drive or operate dangerous equipment b. Do not drink alcohol beverages or use any recreational drugs for the first 24 hours or while taking pain medications. The medications in your body may have a reaction that can be dangerous. c. Do not make any important decisions or sign any important papers 1. Generally there are no restrictions on your activity after a day or so has gone by, but you may feel a bit fatigued for a few days. 2. After you arrive home you may have a light meal and return to a normal diet as you can tolerate it without feeling sick to your stomach. 3. After surgery, you may feel pain or discomfort. This should be only transient, but if it persists please contact your doctor. 4. If there are any questions regarding the findings of your procedure, please feel free to contact your doctor. 6. If you are unable to contact your doctor with a problem, contact the hospital at [phone]. 7. Continue all your regular medications unless directed otherwise. I understand the above instructions and have no questions. Signature of Patient or Responsible Adult Escort Date/Time Name of Responsible Adult Escort Signature of Nurse Date/Time Stand Alone Forms: Kaya Barone (RENANU) Activity:: Activity as Tolerated Diet:: As Tolerated Discharge Orders Discharge Orders: Discharge Order (Routine); Ordered 09/23/21 Ordered By: Adeline Lal
--- NOTE | 2021-09-23 06:32 | ANES.PREOP_ITS ---
General Info Date of Service Date Performed: 09/23/21 Height: 5 ft 9 in Weight: 111.584 kg Body Mass Index (BMI): 36.3 Surgical Procedure: Operation Date: 09/23/21 11:05 Proposed Procedure Side Surgeon p Gastroscopy Adeline Lal MD Meds Allergies and Home Medications Allergies Allergy/AdvReac Type Severity Reaction Status Date / Time No Known Drug Allergies Allergy Verified 09/23/21 09:42 Home Medication Medication Instructions Recorded apixaban 5 mg tablet (Eliquis) 5 mg PO BID 12/06/19 atorvastatin 40 mg tablet 40 mg PO DAILY 12/06/19 magnesium oxide 400 mg PO BID 12/06/19 metformin 1,000 mg tablet 1,000 mg PO BID 12/06/19 omeprazole 20 mg capsule,delayed 20 mg PO DAILY 12/06/19 release spironolactone 25 mg tablet 25 mg PO DAILY 12/06/19 doxazosin 1 mg tablet 1 mg PO HS 12/26/19 dapagliflozin 5 mg tablet (Farxiga) 5 mg PO DAILY 07/23/21 diltiazem HCl 180 mg 300 mg PO DAILY 07/23/21 capsule,extended release 24 hr ferrous sulfate 325 mg (65 mg 325 mg PO DAILY 07/23/21 iron) tablet losartan 25 mg tablet 25 mg PO DAILY 07/23/21 Current Visit Medications: Current Medications Generic Name Dose Route Start Last Admin Trade Name Freq PRN Reason Stop Dose Admin Hyoscyamine Sulfate 0.125 mg 09/23/21 06:23 Hyoscyamine 0.125 Mg Sl/Oral/Chew SL DIRECTED PRN Ringer's Solution 1,000 mls @ 80 mls/hr 09/23/21 06:00 IV 10/20/21 23:59 [facility] IV Miscellaneous Supplies 1 each 09/23/21 06:00 Iv Access IV 10/20/21 23:59 DIRECTED ANA ROSA Ondansetron HCl 4 mg 09/23/21 06:23 Ondansetron 4 Mg/2 Ml Vial IVP Q4H PRN PRN Nausea / Vomiting Sodium Chloride 0 ml 09/23/21 06:00 Normal Saline Flush 10 Ml Syr IV 10/20/21 23:59 PRN PRN Sodium Chloride 0 ml 09/23/21 06:00 Normal Saline 10 Ml Vial IJ 10/20/21 23:59 DIRECTED PRN Sterile Water 0 ml 09/23/21 06:00 Water,Injection,Sterile 10 Ml Vial IJ 10/20/21 23:59 DIRECTED PRN PFSH Active Problems Active Problems: Problem Status Onset Code Positive FIT (fecal immunochemical test) R19.5 Anemia D64.9 Inflammatory polyps GERD (gastroesophageal reflux disease) K21.9 Diabetes type 2, controlled E11.9 Aortic stenosis I35.0 Disease of anus K62.9 Medical History Medical History A-fib F/U Dr. Frederick PCP Blurred vision BMI 34.0-34.9,adult Hx of pilonidal cyst Hyperlipidemia Hyperplastic colon polyp Hypomagnesemia Macrocytic anemia Renal insufficiency Pt. denies this Resistant hypertension Tubular adenoma of colon Surgical History Surgical History S/P colonoscopy 08/2021- Tubular adenoma Tobacco Smoking/Tobacco Use Status: Former Tobacco Use Alcohol Alcohol Intake: former Substance Use Substance use: Never Substance use type: does not use Vital Signs and Lab Results Vital Signs Most Recent Vital Signs in EMR: Temp Pulse Resp BP Pulse Ox 36.7 C 63 19 116/64 97 09/23/21 09:50 09/23/21 09:50 09/23/21 09:50 09/23/21 09:50 09/23/21 09:50 Lab Results Blood Type / Crossmatch: No Data to Display Complete Blood Count: No Data to Display Complete Metabolic Panel: No Data to Display Liver Function Panel: No Data to Display Coagulation Panel: No Data to Display Cardiac Panel: No Data to Display Arterial Blood Gas: No Data to Display Venous Blood Gas: No Data to Display Pancreas Panel: No Data to Display Thyroid Panel: No Data to Display Infectious Disease: Coronavirus (COVID-19)(PCR) Negative (Negative) 09/20/21 07:30 Coronavirus 2019 Source Nasal/Nares 09/20/21 07:30 Blood Cultures: No Data to Display Toxicology Panel: No Data to Display Imaging and Studies Imaging and Studies Study information below may be from another EMR and interpreted by another provider. Please see original notes in EMR for more complete details. Echocardiogram Summary: 03/20/21: LVEF 60-65%, RV fxn wnl. moderate , peak gradient 60 mmhg, mean 34.4 mmhg, JOHNNA 1.15 cm2. Anesthesia Assessment and Plan Anesthesia History Personal History: No History of Anesthesia Complications Family History: No Family History of Anesthesia Complications Exercise Tolerance Exercise Tolerance: Metabolic Equivalents>4 Cardiac & Pulmonary Exam Cardiac Exam: Normal S1/S2 Heart Sounds Pulmonary Exam: Clear Bilateral Breath Sounds Implantable Cardiac Device Does patient have a Pacemaker or an ICD?: No Airway Exam Known Difficult Airway: No Mallampati Class: 2 Mouth Opening: Normal (> 3cm) Thyromental Distance: Greater than 3 cm Neck Range of Motion: Full ROM Neck Circumference: Thick Teeth Condition: Normal Dentition ASA Classification ASA Score: ASA 3 Emergency Case?: No NPO Status NPO Status: NPO Clears >2 hours, Solids >8 hours Anesthesia Plan Resuscitation Status: Full Code Anesthesia Technique: General Anesthesia Airway Planned: Natural Airway Monitors Used: Standard Monitors Preoperative Comments:: 56 yo male here for a EGD due to anemia. No health history change since [place]. Sig PMHx: moderate , CKD, anemia, DM2, GERD, afib, former smoker, former EtOH.. Previous Anes: colo with propofol - no issues.
[2021-09-23 09:50] VITALS: BP 116/64; PULSE 63; RESP 19; TEMP 36.7; O2SAT 97
[2021-09-23] MEDS: Lactated Ringers 1,000 ML 80 ML IV (10:00)
[2021-09-23 10:04] VITALS: BMI 36.3
--- NOTE | 2021-09-23 12:10 | STOM_PTH ---
PATIENT: Jay Paulson LOC: [facility] U#:[id number] AGE/SX: 56/M ROOM: RE09/23/[address]: Adeline Lal MD : 1965 BED: DIS: 09/23/2021 SPEC #: [id number] RECD: 09/23/21 13:06 STATUS: ANT RE #: [id number] NIRALI: 09/23/21 12:[address]: Adeline Lal DEPT: Surgical Specimen RECD BY: Karen Raushc ENTERED: 09/23/21 13:06 SP TYPE: STOMACH OTHR DR: Cody Frederick Tissues: 1 - BIOPSY BOWEL 2 - STOMACH BIOPSY 3 - STOMACH BIOPSY Procedures: GROSS AND MICRO LEVEL 4 Comments: [id number]
[2021-09-23 12:24] VITALS: BP 94/58; PULSE 56; RESP 17; TEMP 36.5; O2SAT 97
--- NOTE | 2021-09-23 12:38 | W.ANESPOSTOP ---
Postoperative Evaluation Date, Time and Location Date Performed: 09/23/21 Time Performed: 12:28 Patient Location: Day Surgery Unit Vital Signs Most Recent Imported Vital Signs: Most Recent Vital Signs Temp Pulse Resp BP Pulse Ox 36.5 C 56 L 17 94/58 L 97 09/23/21 12:24 09/23/21 12:24 09/23/21 12:24 09/23/21 12:24 09/23/21 12:24 Pain Score Most Recent Pain Score: Most Recent Pain Score Pain Level 0 09/23/21 12:24 Assessment Mental Status: Awake (Alert & Oriented to Patient Baseline) Airway and Respiratory Function: Patent airway with normal (patient baseline) respiratory exam Cardiovascular Function: Hemodynamically Stable Hydration Status: Adequately Hydrated Nausea & Vomiting: No Nausea or Vomiting Pain: Pt. Denies Any Pain Peripheral Nerve Block: Patient did not receive a nerve block
[2021-09-23 12:44] VITALS: BP 106/65; PULSE 56; RESP 18; TEMP 37; O2SAT 97
== END 2021-09-23 13:20 | disposition home or self-care (01) ==
PROVIDERS: PCP Family Medicine; Visit Provider Surgery
PROC: 0DJ68ZZ Inspection of Stomach, Via Natural or Artificial Opening Endoscopic (ICD-10-PCS; CPT 43235; principal; 2021-09-23 11:00)
DX: D53.9 Nutritional anemia, unspecified (principal); K29.70 Gastritis, unspecified, without bleeding; K31.7 Polyp of stomach and duodenum; K21.9 Gastro-esophageal reflux disease without esophagitis; E11.9 Type 2 diabetes mellitus without complications; K31.89 Other diseases of stomach and duodenum
CPT/HCPCS: 43239; 88305; J2704

== ENCOUNTER 2021-09-26 17:16 | Outpatient (REF) | payer BC, SELFPAY ==
[2021-09-26 14:25] LABS: HCT 31.6 % (40.0-50.0); HGB 9.1 g/dL (13.5-17.5); MCHC 28.8 % (32.0-36.0); MPV 9.6 fL (8.0-11.0); Platelet Count 368 10^3/uL (130-400); RBC 4.78 10^6/uL (4.36-5.78); RDW-SD 46.6 fL; WBC 7.69 10^3/uL (4.4-10.8)
[2021-09-26 14:59] LABS: MCV 66 fL (80-95)
== END 2021-09-26 17:17 | disposition home or self-care (01) ==
LOC: NCHCN 17:16
PROVIDERS: PCP Family Medicine; Visit Provider Family Medicine
DX: D50.9 Iron deficiency anemia, unspecified (principal)
CPT/HCPCS: 85027

== ENCOUNTER 2021-11-14 10:22 | Outpatient (REF) | payer BC, SELFPAY ==
[2021-11-14 15:25] LABS: HCT 38.8 % (40.0-50.0); HGB 11.7 g/dL (13.5-17.5)
[2021-11-14 16:02] LABS: Calculated LDL 74 mg/dL (<100); Cholesterol 133 mg/dL (<200); HDL Cholesterol 40 mg/dL (40-60); Triglyceride 97 mg/dL (<150)
== END 2021-11-14 10:23 | disposition home or self-care (01) ==
LOC: NCHCN 10:22
PROVIDERS: PCP Family Medicine; Visit Provider Family Medicine
DX: D50.8 Other iron deficiency anemias (principal); E78.5 Hyperlipidemia, unspecified
CPT/HCPCS: 80061; 85014; 85018

== ENCOUNTER 2022-01-14 15:16 | Outpatient (REF) | payer BC, SELFPAY ==
[2022-01-14 15:28] LABS: HCT 41.5 % (40.0-50.0); HGB 13.2 g/dL (13.5-17.5); MCH 23.6 pg (27.0-33.0); MCHC 31.8 % (32.0-36.0); MCV 74 fL (80-95); Platelet Count 352 10^3/uL (130-400); RDW 21.2 % (11.8-14.1); RDW-SD 55.6 fL; WBC 8.49 10^3/uL (4.4-10.8)
[2022-01-14 15:34] LABS: Iron 173 ug/dL (65-175); Total Iron Binding Capacity 413 ug/dL (250-450); Transferrin Sat 42 % (20-55)
[2022-01-14 15:56] LABS: Vitamin B12 771 pg/mL (193-986)
== END 2022-01-14 15:17 | disposition home or self-care (01) ==
LOC: NCHCN 15:16
PROVIDERS: PCP Family Medicine; Visit Provider Family Medicine
DX: D50.8 Other iron deficiency anemias (principal)
CPT/HCPCS: 85027; 82607; 83540; 83550

== ENCOUNTER 2022-06-17 12:54 | Outpatient (REF) | payer BC, SELFPAY ==
[2022-06-17 15:31] LABS: HCT 45.6 % (40.0-50.0); HGB 15.3 g/dL (13.5-17.5); MCH 28.5 pg (27.0-33.0); MCHC 33.6 % (32.0-36.0); MCV 85 fL (80-95); MPV 9.8 fL (8.0-11.0); Platelet Count 293 10^3/uL (130-400); RBC 5.36 10^6/uL (4.36-5.78); RDW 14.6 % (11.8-14.1); RDW-SD 45.4 fL; WBC 7.32 10^3/uL (4.4-10.8)
[2022-06-17 15:47] LABS: BUN 20 mg/dL (7-18); CREATININE 1.4 mg/dL (0.70-1.30); Calcium 9.1 mg/dL (8.5-10.1); Chloride 107 mmol/L (98-107); Glucose 100 mg/dL (74-106); Magnesium 1.9 mg/dL (1.8-2.4); Potassium 4.4 mmol/L (3.5-5.1); Sodium 137 mmol/L (136-145)
== END 2022-06-17 12:55 | disposition home or self-care (01) ==
LOC: NCHCN 12:54
PROVIDERS: PCP Family Medicine; Visit Provider Family Medicine
DX: E83.42 Hypomagnesemia (principal); N18.31 Chronic kidney disease, stage 3a; D50.8 Other iron deficiency anemias
CPT/HCPCS: 80048; 85027; 83735

== ENCOUNTER 2022-08-06 02:33 | Outpatient (CLI) | payer OTHER, SELFPAY ==
--- NOTE | 2022-08-06 08:00 | DI.MRI_ITS ---
Exam(s) MR UPPER JOINT LT WO EXAM: MR UPPER JOINT LT WO CLINICAL HISTORY: lt shoulder Pain has plateaued,no progress,m25.512. TECHNIQUE: Multiplanar multisequence MRI was performed. COMPARISON: None. FINDINGS: BONES: There is no fracture or contusion pattern. JOINTS:The acromioclavicular joint shows mild spurring. The glenohumeral joint shows no evidence of effusion. Subacromial and subdeltoid bursae shows a small amount of fluid. TENDONS: Supraspinatus: There is marked thinning of the distal supraspinatus tendon with some high signal. Th ere may be some intact fibers. Findings are suspicious for a severe partial tear. No significant muscle atrophy. Infraspinatus: Some high signal in the infraspinatus tendon but no visible focal tear. No muscle atr ophy. Subscapularis: Unremarkable. Teres Minor: Tendon appears intact however there is muscle atrophy. Biceps and Lyer[place]: Unremarkable. GLENOID LABRUM: Unremarkable on this noncontrast examination. SOFT TISSUES: Unremarkable. IMPRESSION: Severe partial tear of the supraspinatus tendon. Tendinosis of the infraspinatus tendon. Muscle atr ophy without evidence of tendon tear involving the teres minor. DATA REPOSITORY:
== END 2022-08-06 02:53 ==
LOC: DI 02:34
PROVIDERS: PCP Family Medicine; Visit Provider Nurse Practitioner Family
DX: M75.112 Incomplete rotator cuff tear or rupture of left shoulder, not specified as traumatic (principal); M67.813 Other specified disorders of tendon, right shoulder
CPT/HCPCS: 73221

== ENCOUNTER 2022-08-12 10:01 | Outpatient (CLI) | payer OTHER, SELFPAY ==
--- NOTE | 2022-08-12 09:00 | DI.RAD_ITS ---
Exam(s) XR SHOULDER LT COMPLETE 2+V EXAM: XR SHOULDER LT COMPLETE 2+V CLINICAL HISTORY: left shoulder pain. TECHNIQUE: 2D digital imaging was performed of the left shoulder. Two images were obtained. AP and axillary views were obtained. COMPARISON: MR MR UPPER JOINT LT WO from 08/06/2022 FINDINGS: BONES: No acute fracture is present. No bony destructive lesion is seen. JOINTS: No dislocation present. There are degenerative changes seen at the acromioclavicular and karen ohumeral joint. SOFT TISSUE: Nonspecific calcifications are seen in the soft tissues inferior to the glenoid. IMPRESSION: Degenerative changes of the shoulder. DATA REPOSITORY: RADIATION DOSE DELIVERED:
== END 2022-08-12 10:02 | disposition home or self-care (01) ==
LOC: DIORS 10:02
PROVIDERS: PCP Family Medicine; Referring Provider Family Medicine; Visit Provider Student in an Organized Health Care Education/Training Program
DX: M19.012 Primary osteoarthritis, left shoulder (principal)
CPT/HCPCS: 73030

== ENCOUNTER 2022-09-11 06:00 | Day surgery (SDC) | payer OTHER, SELFPAY ==
[2022-09-11] VITALS (10 sets, daily range): BP systolic 79–114; BP diastolic 33–75; PULSE 59–63; RESP 14–22; TEMP 36–36.5; O2SAT 93–94; BMI 36.3
--- NOTE | 2022-09-11 06:56 | W.ANESPRE ---
General Info Date of Service Date Performed: 09/11/22 Height: 5 ft 9 in Weight: 111.5 kg Body Mass Index (BMI): 36.3 Surgical Procedure: Operation Date: 09/11/22 07:40 Proposed Procedure Side Surgeon p Shoulder Rotator Cuff Arthroscopic w/Extensive Debridement, Biceps Tenodesis, Subacromial Decompression Left Larry Morocho MD Meds Allergies and Home Medications Allergies Allergy/AdvReac Type Severity Reaction Status Date / Time No Known Drug Allergies Allergy Verified 09/11/22 06:20 Home Medication Medication Instructions Recorded apixaban 5 mg tablet (Eliquis) 5 mg PO BID 12/06/19 atorvastatin 40 mg tablet 40 mg PO HS 12/06/19 magnesium oxide 400 mg PO DAILY 12/06/19 metformin 1,000 mg tablet 1,000 mg PO BID 12/06/19 omeprazole 20 mg capsule,delayed 20 mg PO DAILY 12/06/19 release spironolactone 25 mg tablet 25 mg PO DAILY 12/06/19 doxazosin 1 mg tablet 1 mg PO HS 12/26/19 dapagliflozin propanediol 5 mg 5 mg PO DAILY 07/23/21 tablet (Farxiga) losartan 25 mg tablet 25 mg PO DAILY 07/23/21 naproxen 250 mg tablet 250 - 500 mg PO BID PRN #40 tabs 09/11/22 oxycodone 5 mg tablet 5 - 10 mg PO Q4H PRN moderate to 09/11/22 severe pain #18 tabs verapamil 240 mg 24 hr 240 mg PO DAILY 09/11/22 capsule,extended release Current Visit Medications: Current Medications Generic Name Dose Route Start Last Admin Trade Name Charline PRN Reason Stop Dose Admin Ringer's Solution 1,000 mls @ 30 mls/hr 09/11/22 06:00 IV 09/11/22 16:00 INFUSION ANA ROSA Cefazolin Sodium 3,000 mg/ 100 mls @ 200 mls/hr 09/11/22 06:00 Sodium Chloride IV 09/11/22 16:00 PREOP ANA ROSA IV Miscellaneous Supplies 1 each 09/11/22 06:00 Iv Access IV 09/11/22 23:59 DIRECTED ANA ROSA Sodium Chloride 0 ml 09/11/22 06:00 Normal Saline Flush 10 Ml Syr IV 09/11/22 23:59 PRN PRN Sodium Chloride 0 ml 09/11/22 06:00 Normal Saline 10 Ml Vial IJ 09/11/22 23:59 DIRECTED PRN Sterile Water 0 ml 09/11/22 06:00 Water,Injection,Sterile 10 Ml Vial IJ 09/11/22 23:59 DIRECTED PRN PFSH Active Problems Active Problems: Problem Status Onset Code Rotator cuff tear, left M75.102 Claustrophobia F40.240 Left shoulder pain M25.512 Gastritis K29.70 Positive FIT (fecal immunochemical test) R19.5 Anemia D64.9 Inflammatory polyps GERD (gastroesophageal reflux disease) K21.9 Diabetes type 2, controlled E11.9 Aortic stenosis I35.0 Disease of anus K62.9 Medical History Medical History A-fib F/U Dr. Frederick PCP Blurred vision BMI 34.0-34.9,adult Hx of pilonidal cyst Hyperlipidemia Hyperplastic colon polyp Hypomagnesemia Macrocytic anemia Renal insufficiency Pt. denies this Resistant hypertension Tubular adenoma of colon Surgical History Surgical History History of esophagogastroduodenoscopy (EGD) (~09/2021) S/P colonoscopy 08/2021- Tubular adenoma Tobacco Smoking/Tobacco Use Status: Former Tobacco Use Alcohol Alcohol Intake: former Substance Use Substance use: Never Substance use type: does not use Vital Signs and Lab Results Vital Signs Most Recent Vital Signs in EMR: Most Recent Vital Signs Temp Pulse Resp BP Pulse Ox 36.1 C L 63 14 114/69 94 09/11/22 06:26 09/11/22 06:26 09/11/22 06:26 09/11/22 06:26 09/11/22 06:26 Lab Results Blood Type / Crossmatch: No Data to Display Complete Blood Count: No Data to Display Complete Metabolic Panel: No Data to Display Liver Function Panel: No Data to Display Coagulation Panel: No Data to Display Cardiac Panel: No Data to Display Arterial Blood Gas: No Data to Display Venous Blood Gas: No Data to Display Pancreas Panel: No Data to Display Thyroid Panel: No Data to Display Infectious Disease: No Data to Display Blood Cultures: No Data to Display Toxicology Panel: No Data to Display Imaging and Studies Imaging and Studies Study information below may be from another EMR and interpreted by another provider. Please see original notes in EMR for more complete details. Echocardiogram Summary: 03/20/21: LVEF 60-65%, RV fxn wnl. moderate , peak gradient 60 mmhg, mean 34.4 mmhg, JOHNNA 1.15 cm2. Anesthesia Assessment and Plan Anesthesia History Personal History: No History of Anesthesia Complications Family History: No Family History of Anesthesia Complications Exercise Tolerance Exercise Tolerance: Metabolic Equivalents>4 Pertinent Negatives Pertinent Negatives: No Symptoms of GERD Cardiac & Pulmonary Exam Cardiac Exam: Normal S1/S2 Heart Sounds Pulmonary Exam: Clear Bilateral Breath Sounds Implantable Cardiac Device Does patient have a Pacemaker or an ICD?: No Airway Exam Known Difficult Airway: No Mallampati Class: 2 Mouth Opening: Normal (> 3cm) Thyromental Distance: Greater than 3 cm Neck Range of Motion: Full ROM Neck Circumference: Thick Teeth Condition: Normal Dentition and Generalized Poor Dentition ASA Classification ASA Score: ASA 2 Emergency Case?: No NPO Status NPO Status: NPO Clears >2 hours, Solids >8 hours Anesthesia Plan Resuscitation Status: Full Code Anesthesia Technique: General Anesthesia Airway Planned: Endotracheal Tube Pain Management: Surgeon and patient request nerve block (Left interscalene and rescue PECS I/II) Monitors Used: Standard Monitors
--- NOTE | 2022-09-11 07:02 | PDOC.DSDIS_ITS ---
Date of service: 09/11/22 Time of Service: 13:00 Discharge Plan Disposition Condition: Stable Discharge Details Attending Provider: Larry Morocho Primary Care Provider: Cody Frederick Orlando Meds and New Rx's Prescriptions: New naproxen 250 mg tablet 250 - 500 mg PO BID PRNQty: 40 0RF Rx Instructions: take with a meal oxycodone 5 mg tablet 5 - 10 mg PO Q4H MDD 30 mg PRN (Reason: moderate to severe pain) Qty: 18 0RF Continued magnesium oxide 400 mg magnesium capsule 400 mg PO DAILY Eliquis 5 mg tablet 5 mg PO BID omeprazole 20 mg capsule,delayed release(DR/EC) 20 mg PO DAILY spironolactone 25 mg tablet 25 mg PO DAILY metformin 1,000 mg tablet 1,000 mg PO BID atorvastatin 40 mg tablet 40 mg PO HS Farxiga 5 mg tablet 5 mg PO DAILY losartan 25 mg tablet 25 mg PO DAILY doxazosin 1 mg tablet 1 mg PO HS Patient Comments: TK 1 T PO D AT BEDTIME. INCREASE TO 2 MG AFTER 1 WK verapamil 240 mg capsule,ext rel. pellets 24 hr 240 mg PO DAILY Patient Comments: TAKE ONE CAPSULE BY MOUTH EVERY DAY TO REPLACE DILTIAZEM Discharge Instructions Additional Instructions: Surgery: Left shoulder arthroscopy with rotator cuff repair (supraspinatus), extensive debridement, and subacromial decompression. No biceps tenodesis, Activity: For 6 weeks, you should keep your arm at your side in a neutral position at all times except for physical therapy. Do not try to lift or raise your arm using your own muscles. You should use the sling whenever you are out of the house. You may have to adjust the abduction pillow or remove it for comfort. At home it is best to remove the sling and rest the arm on a pillow at your side or support the operative side with your other hand. You may allow the arm to dangle at your side. A physical therapy prescription will be sent electronically to begin in about 3 weeks. Prescriptions: Resume Eliquis tomorrow morning Naproxen 250 mg take 1-2 every 12 hours with a meal as needed for moderate pain Oxycodone 5 mg take 1-2 every 4-6 hours as needed for severe pain You may use [id number] Tylenol (acetaminophen) as needed for mild pain. These pain medications may be taken all at once or in different combinations as needed. Also, recommend Colace (docusate) as a stool softener as surgery and pain medicine cause constipation. You may try [id number] diphenhydramine (Benadryl) 25-50 mg nightly as a sleep aid Dressings: Remove shoulder bandage after 3 days. Leave the sticky Steri-Strips in place until they fall off or remove them after you shower. Cover the incisions with Band-Aids or leave them open to air. You may shower after 5 days. Follow-up: 10-[address] Morocho You may take off the leg compression stockings this evening at home. You may also leave them on a few days longer if you have a history of leg swelling or edema. Let us know right away if you develop any redness, drainage, fevers, chest pain, or trouble breathing. Do not drink alcohol or drive for at least 24 hours after anesthesia. Please call the office during business hours with any questions or concerns. DS: Diagnosis Discharge Diagnosis (1) Traumatic tear of left rotator cuff: Status: Acute
--- NOTE | 2022-09-11 07:05 | W.PM.OP ---
Date of service: 09/11/22 Time of Service: 07:30 Operative Note Operative Note DATE OF PROCEDURE: 09/11/22 PRE-OP DIAGNOSIS: Left: 1. Rotator cuff tear 2. Glenohumeral chondromalacia POST-OP DIAGNOSIS: same Left: 1. Rotator cuff tear 2. Glenohumeral chondromalacia 3. Bursitis PROCEDURE: Left: 1. Rotator cuff repair, CPT# 36444. This involved repair of the supraspinatus using anchors and sutures to reattach the rotator cuff back to the footprint of the greater tuberosity. 2. Extensive debridement, CPT# 92726. This involved using arthroscopic hand instruments, power instruments, and radiofrequency instruments to to remove multiple small chondral and synovial loose bodies in the glenohumeral joint, and axillary recess, debrided minor anterior labral tearing, moderate posterior labral fraying, resect rotator interval synovitis, and debride superior humeral head chondromalacia. 3. Subacromial decompression with partial acromioplasty, CPT# 52775. This involved using arthroscopic power instruments and a radiofrequency wand to complete a bursectomy and smooth the undersurface of the acromion. The property management assistant was medically required in order to help assist in techniques above, which require positioning the arm, holding the arthroscope, and manipulating multiple instruments and sutures at the same time. This cannot be done without the help of an experienced property management assistant. SURGEON: Larry Morocho HISTORY PROFESSOR: Win Hurtado ANESTHESIA TYPE: General LMA/ETT and Primary Nerve Block Refer to Anesthesia Record ESTIMATED BLOOD LOSS: 10 PATHOLOGY: none sent COMPLICATIONS: None Patient was transported to: PACU Patient's condition: stable Implants: Arthrex: 4.75mm SwiveLocks x 4 Indications: The patient was diagnosed with the above conditions and appropriately indicated for surgical intervention. Please see complete medical record for details. Findings: Exam under anesthesia: Full range of motion, no instability Glenohumeral joint: Multiple small probably chondral and synovial loose bodies labral joint and axillary recess. Moderate glenohumeral narrowing especially inferiorly. Intact subscapularis. Intact long head biceps tendon. No significant disruption biceps tendon anchor. Mild anterior labral fraying. Moderate posterior labral fraying. High?grade articular?sided supraspinatus rotator cuff tear over superior humeral head chondromalacia. Subacromial space: Significant bursitis and rotator cuff injection. Near?full-thickness supraspinatus central crescent?shaped mildly retracted rotator cuff tear. Mild extension delaminated through the infraspinatus without affecting the infraspinatus footprint wrapping around posteriorly. Procedure Description: In the operating room, general anesthesia was induced. Bilateral shoulders were examined. The patient was positioned in the beachchair position. All bony prominences were well-padded. Preoperative antibiotics were administered. The shoulder was prepped and draped in the usual sterile fashion. The correct patient, procedure, and side of the procedure were all verified prior to incision. Starting through the posterior portal a standard complete diagnostic arthroscopy was performed of the glenohumeral joint including inspection of the long head of the biceps, anterior and superior labrum, subscapularis tendon, supraspinatus and infraspinatus tendons, and axillary recess. The glenoid and humeral head cartilage as well as the posterior labrum were inspected from an anterior viewing portal. Significant findings and interventions noted above. The biceps tendon was preserved due to intact appearance and lack of symptoms. Starting through the posterior portal, the arthroscope was directed into the subacromial space. A lateral 50 yard line lateral portal was created. A combination of power instruments and a radiofrequency ablator were used to debride bursitis anteriorly, posteriorly, and laterally as well as expose and smooth bone spurring on the undersurface of the acromion. The coracoacromial ligament was minimally released. The bursectomy was completed viewing laterally and working from posteriorly and the rotator cuff was thoroughly inspected with findings noted above. The supraspinatus was thoroughly inspected, arm position optimized, any thin veil of remnant tissue over the abnormal greater tuberosity bone was resected from lateral to medial taking care to preserve as much tendon length as possible. The tendon edges were debrided lightly to a stable margin. The rotator cuff grasper was used to confirm appropriate mobilization and reduction over the now exposed greater tuberosity footprint as well as established the anterior and posterior margins especially with respect to the infraspinatus delaminated layers. Various rasps and mechanical tools were used to thoroughly debride the greater tuberosity footprint to optimize bone tendon healing. A speed bridge knotless double row repair was then performed placing 2 SwiveLock anchors medially anterior posterior extents of the tear with FiberTape shuttled through the appropriate rotator cuff margins and then secured laterally to an additional 2 SwiveLock anchors with the appropriate tension placed on the rotator cuff repair. An additional FiberLink cinch mode repair stitch was placed anterior to the anteriormost tapes, between the anchors to the anterior lateral row anchor. Additional lastly was placed far posteriorly to incorporate the infraspinatus junction. The repair had excellent tissue reduction and compression over the now appropriately covered greater tuberosity. Repair was stable through range of motion. The shoulder was drained of arthroscopic fluid. All portal sites were copiously irrigated. These incisions were closed using 3-0 Monocryl in a buried fashion and then covered with Mastisol, Steri-Strips, Xeroform, dry gauze, and ABDs. The dressings were covered and secured with Medipore tape. The operative extremity was placed into a sling for immobilization. The patient awoke from anesthesia without complication and was transferred to the recovery room in a stable condition.
[2022-09-11] MEDS: Lactated Ringers 1,000 ML 30 ML IV ×2 (07:10→10:53)
[2022-09-11] MEDS: ceFAZolin 3,000 MG in Normal Saline 100 ML 200 MG IV (07:46)
--- NOTE | 2022-09-11 08:28 | W.ANESNERVE ---
Nerve Block Single Injection Procedure Date and Time Date Performed: 09/11/22 Procedure Start: 07:20 Location Where Procedure Performed Procedure Location: Day Surgery Unit Reason Performed: Postoperative Analgesia Requesting Provider: Larry Morocho Timeout Performed Timeout Performed: Yes Monitoring Used ECG, Blood Pressure, SpO2 and See EMR for corresponding vital signs Sterility Sterility: Hand Hygiene, Surgical Cap, Surgical Mask, Sterile Gloves and Chlorhexidine Sedation Given During Procedure Sedation Given (Indicate Dose Given): Versed IV Dose:: 2 mg Patient Mental Status Patient Mental Status: Sedate with meaningful communication Nerve Block 1st Nerve Block: Laterality: Left Block Type: Interscalene Ultrasound Image Saved?: Yes Needle / Catheter Used: 100mm SonoPlex II Local Anesthetic Bolus (Indicate Dose Given): Lidocaine used for local infiltration of skin, Injected in 3-5ml increments after negative blood aspiration, Bupivacaine 0.5% Dose:: 10 ml and Exparel Dose:: 10 ml Additives (Indicate Dose Given): Normal Saline Ultrasound: Sterile probe cover and gel used Nerve Stimulator: Supplement to Ultrasound use, Expected parasthesia or motor response elicited and No twitch or parasthesia noted < 0.5 mA Paresthesia: None Procedure Tolerated: No Complications and Patient tolerated well Procedure Outcome: Successful Performed By: Ishmael Yoder
[2022-09-11] MEDS: EPINEPHrine 30 MG/30 ML VIAL (08:30)
[2022-09-11] MEDS: ePHEDrine 25 MG/5 ML Syringe IVP (10:25)
--- NOTE | 2022-09-11 11:18 | W.ANESPOSTOP ---
Postoperative Evaluation Date, Time and Location Date Performed: 09/11/22 Time Performed: 11:18 Patient Location: Day Surgery Unit Vital Signs Most Recent Imported Vital Signs: Most Recent Vital Signs Temp Pulse Resp BP Pulse Ox 36.5 C 63 14 97/53 L 94 09/11/22 10:55 09/11/22 10:55 09/11/22 10:55 09/11/22 10:55 09/11/22 10:55 Pain Score Most Recent Pain Score: Most Recent Pain Score Pain Level 0 09/11/22 10:55 Assessment Mental Status: Awake (Alert & Oriented to Patient Baseline) Airway and Respiratory Function: Patent airway with normal (patient baseline) respiratory exam Cardiovascular Function: Hemodynamically Stable Hydration Status: Adequately Hydrated Nausea & Vomiting: No Nausea or Vomiting Pain: Pt. Denies Any Pain Peripheral Nerve Block: Regional nerve block not resolved at time of post operative discharge Postoperative Comments:: Ordered IS for the patient to take home
== END 2022-09-11 12:30 | disposition home or self-care (01) ==
PROVIDERS: PCP Family Medicine; Visit Provider Student in an Organized Health Care Education/Training Program
PROC: (CPT 29827; principal; 2022-09-11 07:30)
DX: S46.012A Strain of muscle(s) and tendon(s) of the rotator cuff of left shoulder, initial encounter (principal); E11.9 Type 2 diabetes mellitus without complications; I10 Essential (primary) hypertension; M94.212 Chondromalacia, left shoulder; X50.0XXA Overexertion from strenuous movement or load, initial encounter; Y99.0 Civilian activity done for income or pay; M75.52 Bursitis of left shoulder
CPT/HCPCS: 29827; 29823; 29826; 76942; J0131; J0690; J1100; J2001; J2250; J2371; J2405; J2704

== ENCOUNTER 2023-07-22 16:25 | Outpatient (REF) | payer BC, SELFPAY ==
[2023-07-22 16:59] LABS: COMMENT (LAB VIEW ONLY) 90.53 mg/dL; Microalb ug/mg Crea 4.7 ug/mg Cr
[2023-07-22 21:59] LABS: Anion Gap 11.1 mmol/L (3-11); BUN 26 mg/dL (7-18); CO2 23.9 mmol/L (21.0-32.0); CREATININE 1.4 mg/dL (0.70-1.30); Calcium 8.7 mg/dL (8.5-10.1); Chloride 104 mmol/L (98-107); Estimated GFR 57.54 (mL/min/1.73m2); Glucose 114 mg/dL (74-106); Magnesium 1.9 mg/dL (1.8-2.4); Potassium 3.9 mmol/L (3.5-5.1); Sodium 139 mmol/L (136-145)
== END 2023-07-22 16:26 | disposition home or self-care (01) ==
LOC: NCHCN 16:25
PROVIDERS: PCP Family Medicine; Visit Provider Student in an Organized Health Care Education/Training Program
DX: I10 Essential (primary) hypertension (principal)
CPT/HCPCS: 80048; 82043; 82570; 83735

== ENCOUNTER 2024-12-20 10:07 | Outpatient (REF) | payer BC, SELFPAY ==
[2024-12-20 15:29] LABS: Abs Immature Grans 0.04 10^3/uL (0.0-0.06); HCT 44.7 % (40.0-50.0); HGB 15.2 g/dL (13.5-17.5); Immature Grans % 0.5 %; MCH 29.4 pg (27.0-33.0); MCHC 34.0 % (32.0-36.0); MCV 87 fL (80-95); MPV 10.0 fL (8.0-11.0); Platelet Count 377 10^3/uL (130-400); RBC 5.17 10^6/uL (4.36-5.78); RDW 14.0 % (11.8-14.1); RDW-SD 43.9 fL; WBC 7.48 10^3/uL (4.4-10.8)
[2024-12-20 15:48] LABS: ALT 46 U/L (16-63); AST 32 U/L (15-37); Albumin 4.2 g/dL (3.4-5.0); Alkaline Phosphatase 83 U/L (46-116); Anion Gap 12.3 mmol/L (3-11); BUN 19 mg/dL (7-18); Bilirubin, Total 0.7 mg/dL (0.2-1.0); CO2 24.7 mmol/L (21.0-32.0); Calcium 9.1 mg/dL (8.5-10.1); Chloride 102 mmol/L (98-107); Estimated GFR 62.50 (mL/min/1.73m2); Glucose 99 mg/dL (74-106); Potassium 4.7 mmol/L (3.5-5.1); Sodium 139 mmol/L (136-145); Total Protein 7.4 g/dL (6.4-8.2)
[2024-12-20 16:50] LABS: COMMENT (LAB VIEW ONLY) 97.18 mg/dL; Microalb ug/mg Crea 1.9 ug/mg Cr
== END 2024-12-20 10:08 | disposition home or self-care (01) ==
LOC: NCHCN 10:07
PROVIDERS: PCP Student in an Organized Health Care Education/Training Program; Visit Provider Student in an Organized Health Care Education/Training Program
DX: I10 Essential (primary) hypertension (principal); E11.9 Type 2 diabetes mellitus without complications
CPT/HCPCS: 80053; 82043; 82570; 85025